=== PATIENT | female | born 1990 | race African-American/Black ===

== ENCOUNTER 2024-07-10 01:30 | Emergency (ER) | payer SELFPAY ==
[~2024-07-10] VITALS: Ht 167.6 cm; Wt 93.0 kg
[2024-07-10 01:34] VITALS: BP 142/84; PULSE 88; RESP 18; TEMP 36.9; O2SAT 100
[2024-07-10] MEDS: ACETAMINOPHEN 325MG TABLET PO ONE (03:46)
[2024-07-10] MEDS ORDERED: ALBU90AE3 INH (04:29)
[2024-07-10] MEDS: DEXAMETHASONE 10 MG/ML VIAL PO ONE (04:53)
[2024-07-10] MEDS: ALBUTEROL (0.083%) 2.5MG/3ML NEB HHN ONE (05:18)
== END 2024-07-10 04:31 | disposition home or self-care (01) ==
LOC: ER 01:44
DX: R05.9 Cough, unspecified (principal); B34.9 Viral infection, unspecified; Z79.52 Long term (current) use of systemic steroids
CPT/HCPCS: 99283; 71045; J1100